=== PATIENT | female | born 1945 | race African-American/Black ===

== ENCOUNTER → 2016-07-06 | Outpatient (CLI) | payer MEDICARE, OTHER ==
[~2016-07-06] MED LIST: ASPI81TA3 PO; ATEN50TA PO; CARAS PO; CARV6.2579 PO; CIPR500S2 PO; DICY10CA60 PO; DIGO125T PO; FURO40TA4 PO; LISI20TA11 PO; METR500T14 PO; NIAC500T81 PO; PANT40TA4 PO; POTA20TA96 PO; SPIR25TA PO
[2016-07-06 12:43] LABS: ALBUMIN 3.7 g/dl (3.3-4.9)
[2016-07-06 12:44] LABS: POTASSIUM 3.9 mmol/L (3.5-5.1)
[2016-07-06 12:46] LABS: ALBUMIN/GLOBULIN RATIO 1.02; BILIRUBIN,INDIRECT 0.1 mg/dl (0-1.1); BILIRUBIN,TOTAL 0.1 mg/dl (0.2-1.3); CREATININE 0.89 mg/dl (0.44-1.00); TOTAL PROTEIN 7.3 g/dl (6.1-8.1)
[2016-07-06 12:47] LABS: MAGNESIUM 2.3 mg/dl (1.7-2.5)
[2016-07-06 12:48] LABS: CHOL/HDL RATIO 4.2 RATIO
[2016-07-06 13:08] LABS: BASOPHILS % 0.4 % (0.0-2.0); EOSINOPHILS # 0.4 10^3/ul (0.0-0.5); EOSINOPHILS % 4.8 % (0.0-7.0); HEMATOCRIT 38.6 % (37.0-47.0); HEMOGLOBIN 12.6 g/dl (12.0-16.0); LYMPHOCYTES # 2.5 10^3/ul (0.8-2.9); LYMPHOCYTES % 30.8 % (15.0-51.0); MEAN CORPUSCULAR HEMOGLOBIN 25.6 pg (29.0-33.0); MEAN CORPUSCULAR HGB CONC 32.5 g/dl (32.0-37.0); MEAN CORPUSCULAR VOLUME 78.6 fl (82.0-101.0); MEAN PLATELET VOLUME 10.3 fl (7.4-10.4); MONOCYTE # 0.7 10^3/ul (0.3-0.9); MONOCYTES % 8.3 % (0.0-11.0); NEUTROPHIL # 4.6 10^3/ul (1.6-7.5); NEUTROPHILS % 55.7 % (39.0-77.0); PLATELET COUNT 166 10^3/UL (140-440); RED BLOOD COUNT 4.91 10^6/ul (4.20-5.40); RED CELL DISTRIBUTION WIDTH 15.6 % (11.5-14.5); UNCORRECTED WBC 8.2 10^3/ul (4.8-10.8); WHITE BLOOD COUNT 8.2 10^3/ul (4.8-10.8)
[2016-07-06 13:11] LABS: CONDITION 1; LH ANALYZER COMMENTS 1
[2016-07-06 13:17] LABS: THYROID STIMULATING HORMONE 1.5 MIU/L (0.465-4.680)
== END | disposition home or self-care (01) ==
LOC: LAB 10:33
PROVIDERS: ATTEND Internal Medicine
DX: I24.0 Acute coronary thrombosis not resulting in myocardial infarction (principal); I10 Essential (primary) hypertension; E78.2 Mixed hyperlipidemia; J44.1 Chronic obstructive pulmonary disease with (acute) exacerbation
CPT/HCPCS: 80053; 80061; 82652; 83735; 84443; 85025

== ENCOUNTER 2017-03-03 16:18 | Inpatient (IN) | payer MEDICARE, OTHER ==
[~2017-03-03] VITALS: Ht 162.6 cm; Wt 81.1 kg
[~2017-03-03 16:18] MED LIST changes: +ASPI-664 PO; -ASPI81TA3 PO; -ATEN50TA PO; +BUDE6HFA INHALATION; -CARAS PO; -CIPR500S2 PO; -DICY10CA60 PO; -LISI20TA11 PO; -METR500T14 PO; -PANT40TA4 PO
[2017-03-03] MEDS ORDERED: ONDANSETRON 4 MG INJ IV STA (16:59)
[2017-03-03] MEDS ORDERED: HYDROmorphONE 1 MG/ML SYG IV STA ×2 (16:59→18:58)
[2017-03-03] MEDS ORDERED: SOD CHLORIDE 0.9% 250 ML IV STA (16:59)
--- NOTE | 2017-03-03 17:43 | RADRPT ---
PROCEDURE: CT abdomen and pelvis without IV contrast. CLINICAL INDICATION: Abdominal pain TECHNIQUE: CT scan of the abdomen and pelvis without contrast was performed on the [id number] volumetric [address] scanner. The patient was scanned without intravenous contrast. Coronal and sagittal refo rmatted images were obtained from the axial source images. The CTDI vol is 23.17 mGy and the DLP is 1267.09 mGy-cm. One or more of the following dose reduction techniques were used: Automated exposure control. Adjustment of the mA and/or kV according to patient size. Use of iterative reconstruction technique. COMPARISON: 12/10/2015 FINDINGS: CT abdomen: The lung bases are clear. The heart size is borderline enlarged and is without pericardial thickeni ng or effusion. The liver is normal in size and density and is without focal mass or intrahepatic biliary dilatation . Again seen are calcifications in the left hepatic lobe which are unchanged. The spleen is normal i n size and homogeneous in density. The stomach is grossly unremarkable. The pancreas as visualized is normal. The gallbladder and biliary tree are unremarkable and there is no evidence for common b ile duct dilatation. The adrenal glands are symmetric and normal. The kidneys are symmetrically un remarkable as well. No renal calculus or obstructive uropathy or mass lesion is seen. The aorta is of normal in caliber. Aortic calcifications are seen. There is no retroperitoneal lymph adenopathy. The bryan hepatis region is clear. The large bowel is diffusely fluid-filled. The smal l and large bowel and mesentery, as visualized, are otherwise unremarkable. No inflammatory changes in the periappendiceal region is seen. CT pelvis: The pelvic organs are normal. The pelvic sidewalls and inguinal regions are clear. No pelvic mass, lymphadenopathy, or free fluid is seen. No acute inflammation is seen. The urinary bladder is wit hin normal limits. Degenerative spondylosis of the lumbar spine is seen. No osteolytic or osteoblastic lesion is detec bill. IMPRESSION: 1. Diffusely fluid-filled large bowel which may represent a colonic ileus. The possibility of colit is should also be considered. RPTAT: HPNM Physician Yobani Date Time Electronically viewed and signed by Isac De La Torre Physician on 03/03/2017 17:42 /
[2017-03-03 17:49] LABS: ADD UMIC NO; UR ASCORBIC ACID NEGATIVE (NEGATIVE); UR BILIRUBIN (Dip) NEGATIVE (NEGATIVE); UR BLOOD (Dip) NEGATIVE (NEGATIVE); UR CLARITY CLEAR (CLEAR); UR COLOR STRAW (YELLOW); UR GLUCOSE (Dip) NEGATIVE (NEGATIVE); UR KETONES (Dip) NEGATIVE (NEGATIVE); UR LEUKOCYTE ESTERASE (Dip) NEGATIVE Leu/ul (NEGATIVE); UR NITRITE (Dip) NEGATIVE (NEGATIVE); UR SPECIFIC GRAVITY (Dip) 1.005 (1.003-1.030); UR TOTAL PROTEIN (Dip) NEGATIVE (NEGATIVE); UR UROBILINOGEN (Dip) NEGATIVE (NEGATIVE)
[2017-03-03 17:52] LABS: ABNORMAL IP MESSAGE 1; BASOPHILS % 0.4 % (0.0-2.0); EOSINOPHILS # 0.4 10^3/ul (0.0-0.5); EOSINOPHILS % 4.2 % (0.0-7.0); HEMATOCRIT 43.1 % (37.0-47.0); HEMOGLOBIN 13.4 g/dl (12.0-16.0); LYMPHOCYTES # 2.9 10^3/ul (0.8-2.9); LYMPHOCYTES % 29.5 % (15.0-51.0); MEAN CORPUSCULAR HEMOGLOBIN 25.7 pg (29.0-33.0); MEAN CORPUSCULAR HGB CONC 31.1 g/dl (32.0-37.0); MEAN CORPUSCULAR VOLUME 82.6 fl (82.0-101.0); MEAN PLATELET VOLUME 13.1 fl (7.4-10.4); MONOCYTE # 0.9 10^3/ul (0.3-0.9); MONOCYTES % 8.7 % (0.0-11.0); NEUTROPHIL # 5.6 10^3/ul (1.6-7.5); PLATELET COUNT 172 10^3/UL (140-415); RED BLOOD COUNT 5.22 10^6/ul (4.20-5.40); RED CELL DISTRIBUTION WIDTH 14.7 % (11.5-14.5); WHITE BLOOD COUNT 9.8 10^3/ul (4.8-10.8)
[2017-03-03 18:01] LABS: POSITIVE DIFF @See below
--- NOTE | 2017-03-03 18:05 | ERA ---
ER Documentation Chief Complaint Date/Time DATE: 03/03/17 TIME: 17:59 Chief Complaint sent by PCP for 03/08 abd pain HPI 71-year-old female presenting with diffuse abdominal pain. She states that her symptoms started about 3 weeks ago. She has had mold in her apartment and is not being taken care of per the daughter. She states that there was moldy water dripping into her mouth. Her pain has recently gotten worse. She has had intermittent nausea, vomiting, and diarrhea. She is unable to quantify how much. She states she intermittently also has blood in her stool. She denies any fever but endorses chills. She states the pain is aching, in the upper abdomen, radiating all over her abdomen and into her chest. The pain has not changed in quality but has become more intense. She rates a 10 out of 10. No associated dysuria. She was sent by her primary care doctor Dr. Minnie Anderson for evaluation and admission. ROS All systems reviewed and are negative except as per history of present illness. Medications Home Meds Reported Medications Lisinopril* (Lisinopril*) Unknown Strength Tablet, PO DAILY, #30 TAB 03/03/17 Aspirin* (Aspirin* EC) 81 Mg Tablet.dr, 81 MG PO DAILY, TAB 01/21/17 Budesonide-Formoterol Fumarate* (Symbicort*) 160-4.5 Hfa.aer.ad, 2 PUFF INHALATION BID, #1 EACH 01/21/17 Niacin* (Niacin*) 500 Mg Tablet, 500 MG PO BID, TAB 12/10/15 Potassium Chloride* (Potassium Chloride*) 20 Meq Tablet.er, 20 MEQ PO DAILY, TAB.SA 04/13/14 Spironolactone* (Aldactone*) 25 Mg Tablet, 25 MG PO DAILY, TAB 04/13/14 Furosemide* (Furosemide*) 40 Mg Tablet, 40 MG PO DAILY, TAB 12/25/13 Discontinued Reported Medications Carvedilol* (Carvedilol*) 6.25 Mg Tablet, 6.25 MG PO BID, #60 TAB 12/10/15 Digoxin* (Digoxin*) 0.125 Mg Tab, 0.125 MG PO DAILY, #30 TAB 12/10/15 Allergies Allergies: Coded Allergies: morphine (Verified Allergy, Unknown, HALLUCINATIONS, 03/03/17) caffeine (Verified Adverse Reaction, Unknown, 03/03/17) PMhx/Soc History of Surgery: No Anesthesia Reaction: No Hx Neurological Disorder: No Hx Respiratory Disorders: Yes (BRONCHITIS,ASTHMA) Hx Cardiac Disorders: Yes (CHF,HTN) Hx Psychiatric Problems: No Hx Miscellaneous Medical Probl: Yes (QUESTIONABLE STROKE 2015) Hx Alcohol Use: No Hx Substance Use: No Hx Tobacco Use: No Smoking Status: Never smoker FmHx Family History: No diabetes Physical Exam Vitals Vital Signs Date Time Temp Pulse Resp B/P Pulse Ox O2 Delivery O2 Flow Rate FiO2 03/03/17 16:20 98.3 79 20 174/86 98 Physical Exam Const: Well-developed, nontoxic, mild distress secondary to pain Head: Atraumatic Eyes: Normal Conjunctiva but no scleral icterus, PERRLA ENT: Normal External Ears, Nose and Mouth. Neck: Full range of motion..~ No meningismus. Resp: Clear to auscultation bilaterally Cardio: Regular rate and rhythm, no murmurs Abd: Soft, diffuse mild tenderness to palpation, no rebound or guarding, mildly distended. Normal bowel sounds Skin: No petechiae or rashes Back: No midline or flank tenderness Ext: No cyanosis, or edema Neur: Awake and alert Psych: Normal Mood and Affect Result Diagram: 03/03/17 1725 03/03/17 1725 Results 24 hrs Laboratory Tests Test 03/03/17 17:25 White Blood Count 9.810^3/ul Red Blood Count 5.2210^6/ul Hemoglobin 13.4g/dl Hematocrit 43.1% Mean Corpuscular Volume 82.6fl Mean Corpuscular Hemoglobin 25.7pg Mean Corpuscular Hemoglobin Concent 31.1g/dl Red Cell Distribution Width 14.7% Platelet Count 66464^3/UL Mean Platelet Volume 13.1fl Neutrophils % 57.0% Lymphocytes % 29.5% Monocytes % 8.7% Eosinophils % 4.2% Basophils % 0.4% Nucleated Red Blood Cells % 0.0/100WBC Neutrophils # 5.610^3/ul Lymphocytes # 2.910^3/ul Monocytes # 0.910^3/ul Eosinophils # 0.410^3/ul Basophils # 0.010^3/ul Nucleated Red Blood Cells # 0.010^3/ul Urine Color STRAW Urine Clarity CLEAR Urine pH 5.0 Urine Specific [place] 1.005 Urine Ketones NEGATIVEmg/dL Urine Nitrite NEGATIVEmg/dL Urine Bilirubin NEGATIVEmg/dL Urine Urobilinogen NEGATIVEmg/dL Urine Leukocyte Esterase NEGATIVELeu/ul Urine Hemoglobin NEGATIVEmg/dL Urine Glucose NEGATIVEmg/dL Urine Total Protein NEGATIVEmg/dl Sodium Level 143mmol/L Potassium Level 3.9mmol/L Chloride Level 111mmol/L Carbon Dioxide Level 22mmol/L Anion Gap 14 Blood Urea Nitrogen 14mg/dl Creatinine 0.92mg/dl Glucose Level 113mg/dl Calcium Level 9.2mg/dl Total Bilirubin 0.3mg/dl Direct Bilirubin 0.00mg/dl Indirect Bilirubin 0.3mg/dl Aspartate Amino Transf (AST/SGOT) 25IU/L Alanine Aminotransferase (ALT/SGPT) 28IU/L Alkaline Phosphatase 129IU/L Troponin I < 0.012ng/ml Total Protein 8.6g/dl Albumin 4.3g/dl Globulin 4.30g/dl Albumin/Globulin Ratio 1.00 Lipase 65U/L Current Medications Medications (Trade) Dose Ordered Sig/Alok Route PRN Reason Start Time Stop Time Status Last Admin Dose Admin Sodium Chloride (NS) 250 ml @ 250 mls/hr Q1H STAT IV 03/03/17 16:59 03/03/17 17:58 DC 03/03/17 17:49 Ondansetron HCl (Zofran Inj) 4 mg ONCE STAT IV 03/03/17 16:59 03/03/17 17:02 DC 03/03/17 17:49 Hydromorphone HCl (Dilaudid) 0.5 mg ONCE STAT IV 03/03/17 16:59 03/03/17 17:02 DC Procedures/MDM EMERGENT LABS AND DIAGNOSTIC STUDIES: Lab Results above were reviewed and interpreted by me. CBC: no anemia or evidence of infection CMP: No evidence of electrolyte abnormality, renal failure, hypoglycemia, liver failure, or biliary obstruction Troponin within normal limits UA: no evidence of infection 12-lead EKG was interpreted by Ken Combs MD: Normal Sinus Rhythm with ventricular rate of 71 beats per minute Normal axis Normal intervals No acute ST or T wave changes suggestive of acute ischemia or STEMI. Radiology Results as interpreted by Radiology below were reviewed by Suzy Combs MD: CT abdomen and pelvis shows evidence of ileus and colitis Initial Nursing notes reviewed. Previous Medical Records requested via the Electronic Health Record. EMERGENCY DEPARTMENT COURSE / MEDICAL DECISION MAKING: Patient is presenting with diffuse abdominal pain with nausea, vomiting, diarrhea for several weeks. She is afebrile with stable vitals. Her blood pressure is elevated, but I do not suspect hypertensive emergency. IV fluids were started. Morphine and Zofran were given for her pain and nausea. No evidence of sepsis at this time. I have a low suspicion for aortic dissection, perforated viscus, bowel obstruction, cholecystitis, appendicitis, pancreatitis , or acute coronary syndrome. Her labs showed no significant abnormalities. Her CT did confirm presence of ileus and colitis. Given her p.o. intolerance and continued pain, the patient will be admitted for IV fluids, pain control and treatment of her colitis. Accepting Care Team: Current data and ongoing care discussed. Time: Time of admission Primary Provider: David Consulting: none Outstanding Data: none Departure Diagnosis: Primary Impression: Colitis Additional Impression: Ileus Condition: ARAM Murdock MD Mar 03, 2017 18:05
[2017-03-03 18:08] LABS: ALANINE AMINOTRANSFERASE 28 IU/L (13-69); ALBUMIN 4.3 g/dl (3.3-4.9); ALKALINE PHOSPHATASE 129 IU/L (42-121); ANION GAP 14 (8-16); ASPARTATE AMINO TRANSFERASE 25 IU/L (15-46); BILIRUBIN,INDIRECT 0.3 mg/dl (0-1.1); BILIRUBIN,TOTAL 0.3 mg/dl (0.2-1.3); BLOOD UREA NITROGEN 14 mg/dl (7-20); CALCIUM 9.2 mg/dl (8.4-10.2); CARBON DIOXIDE 22 mmol/L (21-31); CHLORIDE 111 mmol/L (97-110); CREATININE 0.92 mg/dl (0.44-1.00); GLUCOSE 113 mg/dl (70-220); POTASSIUM 3.9 mmol/L (3.5-5.1); SODIUM 143 mmol/L (135-144); TOTAL PROTEIN 8.6 g/dl (6.1-8.1)
[2017-03-03 18:21] LABS: TROPONIN-I < 0.012 ng/ml (0.00-0.12)
[2017-03-03] MEDS ORDERED: ACETAMINOPHEN 325 MG TAB PO PRN (18:30)
[2017-03-03] MEDS ORDERED: ONDANSETRON 4 MG INJ IV PRN (18:30)
[2017-03-03 18:58] VITALS: TEMP 98.3
[2017-03-03] MEDS ORDERED: LISI20TA11 PO (19:02)
[2017-03-03] MEDS ORDERED: HYDROmorphONE 1 MG/ML SYG IV PRN (19:30)
[2017-03-03] MEDS ORDERED: ACETAMINOPHEN 650 MG SUPP PR PRN (19:30)
[2017-03-03] MEDS ORDERED: NACL 0.9% 3 ML SYG IV SCH (19:30)
[2017-03-03 20:15] VITALS: BP 183/83; PULSE 69; RESP 19
[2017-03-03] MEDS: ENALAPRILAT 1.25 MG INJ IV PRN (20:45)
[2017-03-03 21:30] VITALS: BP 180/86; PULSE 64
[2017-03-03] MEDS ORDERED: FAMOTIDINE 20 MG INJ IV SCH (22:00)
[2017-03-03] MEDS: metroNIDAZOLE 500 MG/NS (PMX) 100 ML IVPB SCH (22:00)
[2017-03-03] MEDS ORDERED: hydrALAzine 20 MG INJ IV PRN (22:00)
--- NOTE | 2017-03-03 22:58 | HP ---
Date/Time of Note Date/Time of Note DATE: 03/03/17 TIME: 22:52 Assessment/Plan VTE Prophylaxis VTE Prophylaxis Intervention: SCD's Lines/Catheters IV C[facility]ter Type [facility]from [facility] Peripheral IV Assessment/Plan Chief Complaint/Hosp Course This is a 71-year-old female who is being admitted to the [facility] floor for: #1 diarrhea: Infectious versus viral versus other etiology. CAT scan: Diffusely fluid-filled large bowel which may represent a colonic ileus. The possibility of colitis should also be considered. Patient has been exposed to mold as well as other chemicals secondary to her poor living conditions at her apartment. She does not have any fevers at this time and has a normal white blood cell count. At the current time will provide her with normal saline IV fluid hydration. Will put her on the brat diet. Will start her on Cipro and Flagyl at the current time. Will check stool studies, fecal occult stool, ova and parasites, culture of her stool, will check for organisms. Will also check C. difficile. Will hold off on any anti-motility agents at this time. Will also consider a GI consultation to help with further evaluation and possibly infectious disease.. Will monitor hemoglobin every 6 hours as she does state she has some blood. #2 History of anemia: At the current time she appears to be normocytic. Hemoglobin is 13. Which is baseline compared to her hemoglobin in 2016. Will continue monitor H&H secondary to #1. #3 CHF: At the current time patient does not appear to be in any cardiac decompensation. Will continue aspirin at this time. Patient is not currently on a beta-keith. Will hold her diuretics at the current time secondary to her diarrhea and her ileus. We will need to verify her medications to see if there is anything missing as well. #4 hypertension: Patient currently is on Lasix and spironolactone, will hold these right now secondary to the diuretic effect and that she is having diarrhea and electrolyte losses will hold this for now. Will put as needed hydralazine on board for blood pressure control #5 history of CVA: Patient at the current time does not have any residual neurological deficit. Continue aspirin. #6 hyperlipidemia: Not currently on statin. #7 previous history of seizures: Patient currently not on any AEDs. Continue to monitor. #8 DVT and GI prophylaxis: SCDs, acid keith Further treatment strategy will be implemented as per the clinical course Problems: HPI/ROS Admit Date/Time Admit Date/Time Mar 03, 2017 at 18:23 Hx of Present Illness Chief complaint: Diarrhea for approximately 3 weeks This is a 71-year-old female presenting with diffuse abdominal pain. She states that her symptoms started about 3 weeks ago. She has had mold in her apartment and is not being taken care of per the daughter. She states that there was moldy water dripping into her mouth. Her pain has recently gotten worse. She has had intermittent nausea, vomiting, and diarrhea. She is unable to quantify how much. She states she intermittently also has blood in her stool. She denies any fever but endorses chills. She states the pain is aching , in the upper abdomen, radiating all over her abdomen and into her chest. The pain has not changed in quality but has become more intense. She rates a 10 out of 10. No associated dysuria. She was sent by her primary care doctor Dr. Minnie Anderson for evaluation and admission. Of note the patient describes her stool as being liquidy, at times she has noticed some fat, as well as some occasional episodes of blood. She also reports at times feeling hot but has not checked her temperature. Upon my examination of the patient I was also able to talk to the patient's daughter over the phone who also stated that she has had very similar symptoms to her mother as they both lived in the same apartment. They are both unsure what exactly is going on. Her current apartment situation is being dealt with and they have gotten a hand binder cutter and the state involved as well. Allergies: Caffeine, morphine Medications: See MELL VERONICA Const: As per HPI Eyes : No pain discharge or redness or change in visual acuity ENT: No pain, sore throat, congestion, congestion, dysphagia or discharge Respiratory: No shortness of breath, cough, sputum, wheezing, or pleuritic pain Cardiovascular: No chest pain, palpitation, PND, or edema GI : As per HPI Genitourinary: No dysuria, hematuria, flank pain , discharge or CVA tenderness Musculoskeletal: No joint pain, back pain, neck pain, restricted range of motion in neck or joints Skin: No rash, bruising or hives Neuro: No headache, dizziness, syncope, seizure, focal weakness Endocrine: No polyuria, polydipsia, temperature intolerance Psych: No hallucination, depression, anxiety or suicidal ideation PMH/Family/Social Past Medical History CVA, Arthritis, Previous TIA. History of seizure in the past. Chronic anemia. Morbid obesity. History of uterine fibroids, congestive heart failure, diabetes, high cholesterol, hypertension Past Surgical History Lipoma resection behind right ear Family History Significant Family History: diabetes, hypertension Social History Alcohol Use: none Smoking Status: Never smoker Drug Use: none Exam/Review of Systems Vital Signs Vitals Vital Signs Date Time Temp Pulse Resp B/P Pulse Ox O2 Delivery O2 Flow Rate FiO2 03/03/17 18:58 98.3 70 18 161/74 03/03/17 16:20 98 Exam Exam General: Patient is a obese female lying in bed no acute distress HEENT: Atraumatic, normocephalic. The pupils are equal, round and reactive. Extraocular motor are intact Neck: Supple with full range of motion. No rigidity or meningismus Chest: Nontender Lungs: Clear to auscultation bilaterally no crackles rales or wheezing Heart: Normal S1-S2, Regular rhythm and rate. No murmur, S3, or S4 Abdomen: Soft, tenderness to palpation at the epigastric area, nondistended, hypoactive bowel sounds Extremities: Normal to inspection, no edema no cyanosis Neurologic: Normal mental status, speech normal, cranial nerves II through XII are intact, motor and sensory are intact, no focal weakness Additional Comments PROCEDURE: CT abdomen and pelvis without IV contrast. CLINICAL INDICATION: Abdominal pain TECHNIQUE: CT scan of the abdomen and pelvis without contrast was performed on the Fracture volumetric [address] scanner. The patient was scanned without intravenous contrast. Coronal and sagittal reformatted images were obtained from the axial source images. The CTDI vol is 23.17 mGy and the DLP is 1267.09 mGy-cm. One or more of the following dose reduction techniques were used: Automated exposure control. Adjustment of the mA and/or kV according to patient size. Use of iterative reconstruction technique. COMPARISON: 12/10/2015 FINDINGS: CT abdomen: The lung bases are clear. The heart size is borderline enlarged and is without pericardial thickening or effusion. The liver is normal in size and density and is without focal mass or intrahepatic biliary dilatation. Again seen are calcifications in the left hepatic lobe which are unchanged. The spleen is normal in size and homogeneous in density. The stomach is grossly unremarkable. The pancreas as visualized is normal. The gallbladder and biliary tree are unremarkable and there is no evidence for common bile duct dilatation. The adrenal glands are symmetric and normal. The kidneys are symmetrically unremarkable as well. No renal calculus or obstructive uropathy or mass lesion is seen. The aorta is of normal in caliber. Aortic calcifications are seen. There is no retroperitoneal lymphadenopathy. The bryan hepatis region is clear. The large bowel is diffusely fluid-filled. The small and large bowel and mesentery, as visualized, are otherwise unremarkable. No inflammatory changes in the periappendiceal region is seen. CT pelvis: The pelvic organs are normal. The pelvic sidewalls and inguinal regions are clear. No pelvic mass, lymphadenopathy, or free fluid is seen. No acute inflammation is seen. The urinary bladder is within normal limits. Degenerative spondylosis of the lumbar spine is seen. No osteolytic or osteoblastic lesion is detected. IMPRESSION: 1. Diffusely fluid-filled large bowel which may represent a colonic ileus. The possibility of colitis should also be considered. RPTAT: HPNM Physician Yobani Date Time Electronically viewed and signed by Physician Yobani on 03/03/2017 17 :42 / CC: ARAM CASANOVA MD Labs Result Diagram: 03/03/17 1725 03/03/17 1725 Medications Medications Current Medications Sodium Chloride (NS) 1,000 ml @ 100 mls/hr Q10H IV ; Start 03/03/17 at 22:00 Ondansetron HCl (Zofran Inj) 4 mg Q6H PRN IV NAUSEA AND/OR VOMITING; Start 03/03/17 at 19:30 Acetaminophen (Tylenol Supp) 650 mg Q6H PRN GA PAIN LEVEL 1-3 OR FEVER; Start 03/03/17 at 19:30 Hydromorphone HCl (Dilaudid) 0.5 mg Q4H PRN IV SEVERE PAIN LEVEL 7-10; Start 03/03/17 at 19:30 Famotidine 20 mg 20 mg QHS IV Last administered on 03/03/17 22:00; Admin Dose 20 MG; Start 03/03/17 at 22:00 Metronidazole (Flagyl 500 Mg (Pmx)) 100 ml @ 100 mls/hr Q8 IVPB Last administered on 03/03/17 22:00; Admin Dose 100 MLS/HR; Start 03/03/17 at 22:00 Enalaprilat (Vasotec Iv) 0.625 mg Q6H PRN IV SBP >160 Last administered on 03/03 20:45; Admin Dose 0.625 MG; Start 03/03/17 at 19:30 Hydralazine HCl 20 mg 20 mg Q4 PRN IV ELEVATED BLOOD PRESSURE; Start 03/03/17 at 22:00 Ciprofloxacin/ Dextrose (Cipro Ivpb) 200 ml @ 200 mls/hr Q24H IVPB ; Start 03/03/17 at 23:00 Lactobacillus Acidophilus/ Rhamnosus (Culturelle) 1 cap BID PO ; Start 03/03/17 at 23:00 DUNCAN GONZALEZ Mar 03, 2017 22:58
[2017-03-03] MEDS: LACTOBACILLUS RHAMNOSUS CAP PO SCH (23:00)
[2017-03-03 23:35] VITALS: BP 172/79; PULSE 84; RESP 18
[2017-03-04] MEDS ORDERED: CLINDAMYCIN 600 MG/D5W (PMX) 50 ML IVPB SCH
[2017-03-04] MEDS: SOD CHLORIDE 0.9% 1,000 ML IV SCH ×2 (00:24→08:00)
[2017-03-04] MEDS: CIPROFLOXACIN 400MG/D5W 200 ML IVPB SCH ×2 (00:24→22:59)
[2017-03-04 00:38] VITALS: Ht 162.6 cm; Wt 81.1 kg
[2017-03-04] MEDS: metroNIDAZOLE 500 MG/NS (PMX) 100 ML IVPB SCH ×3 (04:48→21:37)
[2017-03-04 05:50] VITALS: BP 145/90; PULSE 74; RESP 18
[2017-03-04 06:01] LABS: BASOPHIL # 0.1 10^3/ul (0.0-0.1); BASOPHILS % 0.7 % (0.0-2.0); EOSINOPHILS # 0.5 10^3/ul (0.0-0.5); EOSINOPHILS % 5.5 % (0.0-7.0); HEMATOCRIT 39.3 % (37.0-47.0); HEMOGLOBIN 12.1 g/dl (12.0-16.0); LYMPHOCYTES # 2.5 10^3/ul (0.8-2.9); LYMPHOCYTES % 28.3 % (15.0-51.0); MEAN CORPUSCULAR HEMOGLOBIN 25.4 pg (29.0-33.0); MEAN CORPUSCULAR HGB CONC 30.8 g/dl (32.0-37.0); MEAN CORPUSCULAR VOLUME 82.4 fl (82.0-101.0); MEAN PLATELET VOLUME 12.1 fl (7.4-10.4); MONOCYTE # 0.8 10^3/ul (0.3-0.9); NEUTROPHIL # 4.9 10^3/ul (1.6-7.5); NEUTROPHILS % 56.3 % (39.0-77.0); PLATELET COUNT 166 10^3/UL (140-415); RED BLOOD COUNT 4.77 10^6/ul (4.20-5.40); RED CELL DISTRIBUTION WIDTH 14.7 % (11.5-14.5); WHITE BLOOD COUNT 8.7 10^3/ul (4.8-10.8)
[2017-03-04 06:49] LABS: ALBUMIN 3.5 g/dl (3.3-4.9); ALBUMIN/GLOBULIN RATIO 1.06; BILIRUBIN,INDIRECT 0.3 mg/dl (0-1.1); BILIRUBIN,TOTAL 0.3 mg/dl (0.2-1.3); CALCIUM 8.5 mg/dl (8.4-10.2); CREATININE 0.94 mg/dl (0.44-1.00); MAGNESIUM 2.1 mg/dl (1.7-2.5); POTASSIUM 3.3 mmol/L (3.5-5.1); TOTAL PROTEIN 6.8 g/dl (6.1-8.1)
[2017-03-04 08:00] VITALS: BP 175/84; PULSE 72; RESP 18
[2017-03-04] MEDS: LACTOBACILLUS RHAMNOSUS CAP PO SCH ×2 (09:18→21:36)
[2017-03-04] MEDS: ASPIRIN (EC) 81 MG TAB PO SCH (09:18)
[2017-03-04] MEDS: SALMETEROL/FLUTICASONE 250/50 INHA INH SCH ×2 (09:18→21:36)
[2017-03-04] MEDS: ENALAPRILAT 1.25 MG INJ IV PRN (09:33)
[2017-03-04 11:30] VITALS: BP 197/86; PULSE 86; RESP 18
[2017-03-04] MEDS: FUROSEMIDE 40 MG TAB PO SCH (11:55)
[2017-03-04] MEDS: POTASSIUM CHLORIDE (SR) 20 MEQ TAB PO SCH (11:55)
[2017-03-04] MEDS: SPIRONOLACTONE 25 MG TAB PO SCH (12:21)
[2017-03-04] MEDS ORDERED: POTASSIUM CHLORIDE 20 MEQ in SOD CHLORIDE 0.9% 100 ML IVPB ONE (12:30)
[2017-03-04] MEDS: D5W-0.45 NACL + KCL 10 MEQ 1,000 ML IV SCH (12:59)
[2017-03-04 13:30] VITALS: BP 154/75; PULSE 86; RESP 18
[2017-03-04] MEDS: NIACIN 500 MG TAB PO SCH ×2 (13:48→21:36)
--- NOTE | 2017-03-04 15:30 | PN ---
Date/Time of Note Date/Time of Note DATE: 03/04/17 TIME: 15:25 Assessment/Plan VTE Prophylaxis VTE Prophylaxis Intervention: SCD's Lines/Catheters IV Catheter Type (from Nrsg): Peripheral IV Assessment/Plan Assessment/Plan 1. Acute colitis with possible colonic ileus 2. Acute intractable abdominal due to # 1 3. Hypokalemia due to diarrhea and Decreased PO intake 4. h/o CHF, compensated 5. accelerated HTN 6. h/o Asthma 7. ? Stroke as per patient Plan: d/c diet, keep pt NPO Except meds since she is not passing gas yesterday pt signed out AMA and she came back immediately, today she agreed to stay in hospital and get care BP high, will resumer her home meds of lasix and spironolactone, IV hydralazine with PO hydralazine prn d/c enalapril KCL 20mEQ IV X1 extra dose, d/c NS IVF , start D51/2NS with 10mEQ KCL at 70cc/hr SCD for DVT prophylaxis GI consulted on the case Subjective 24 Hr Interval Summary Free Text/Dictation pt not passing gas, no BM yet, still c/o signficant pain in abdomen, Exam/Review of Systems Vital Signs Vitals Vital Signs Date Time Temp Pulse Resp B/P Pulse Ox O2 Delivery O2 Flow Rate FiO2 03/04/17 13:30 86 18 154/75 95 Room Air 03/04/17 08:00 97.0 Intake and Output 03/03/17 03/03/17 03/04/17 15:00 23:00 07:00 Intake Total 100 ml 840 ml Output Total 400 ml Balance 100 ml 440 ml Exam Constitutional: alert, distress (mild distress due to pain ), other Head: normocephalic ENMT: nl external ears & nose Neck: non-tender, supple Respiratory: clear to auscultation, diminished breath sounds, normal air movement Cardiovascular: nl pulses, regular rate and rhythm Gastrointestinal: soft, tender (diffusely over th abdomen, more on left side ) Musculoskeletal: muscle weakness, nl extremities to inspection, nl gait and stance Neurological: BREAST SURGEON II-XII intact, nl mental status, nl speech, nl strength Skin: nl turgor Results Result Diagram: 03/04/1743903/04/17439 Results 24 hrs Laboratory Tests Test 03/03/17 17:25 03/04/17 04:40 03/04/17 08:50 White Blood Count 9.8 8.7 Red Blood Count 5.22 4.77 Hemoglobin 13.4 12.1 Hematocrit 43.1 39.3 Mean Corpuscular Volume 82.6 82.4 Mean Corpuscular Hemoglobin 25.7 L 25.4 L Mean Corpuscular Hemoglobin Concent 31.1 L 30.8 L Red Cell Distribution Width 14.7 H 14.7 H Platelet Count 172 166 Mean Platelet Volume 13.1 H 12.1 H Neutrophils % 57.0 56.3 Lymphocytes % 29.5 28.3 Monocytes % 8.7 9.0 Eosinophils % 4.2 5.5 Basophils % 0.4 0.7 Nucleated Red Blood Cells % 0.0 0.0 Neutrophils # 5.6 4.9 Lymphocytes # 2.9 2.5 Monocytes # 0.9 0.8 Eosinophils # 0.4 0.5 Basophils # 0.0 0.1 Nucleated Red Blood Cells # 0.0 0.0 Urine Color STRAW Urine Clarity CLEAR Urine pH 5.0 Urine Specific Cook 1.005 Urine Ketones NEGATIVE Urine Nitrite NEGATIVE Urine Bilirubin NEGATIVE Urine Urobilinogen NEGATIVE Urine Leukocyte Esterase NEGATIVE Urine Hemoglobin NEGATIVE Urine Glucose NEGATIVE Urine Total Protein NEGATIVE Sodium Level 143 144 Potassium Level 3.9 3.3 L Chloride Level 111 H 113 H Carbon Dioxide Level 22 23 Anion Gap 14 11 Blood Urea Nitrogen 14 11 Creatinine 0.92 0.94 Glucose Level 113 120 Calcium Level 9.2 8.5 Total Bilirubin 0.3 0.3 Direct Bilirubin 0.00 0.00 Indirect Bilirubin 0.3 0.3 Aspartate Amino Transf (AST/SGOT) 25 21 Alanine Aminotransferase (ALT/SGPT) 28 29 Alkaline Phosphatase 129 H 106 Troponin I < 0.012 Total Protein 8.6 H 6.8 # Albumin 4.3 3.5 Globulin 4.30 H 3.30 H Albumin/Globulin Ratio 1.00 1.06 Lipase 65 Magnesium Level 2.1 Stool Occult Blood NEGATIVE Medications Medications Current Medications Ondansetron HCl (Zofran Inj) 4 mg Q6H PRN IV NAUSEA AND/OR VOMITING; Start 03/03/17 at 19:30 Acetaminophen (Tylenol Supp) 650 mg Q6H PRN [place] PAIN LEVEL 1-3 OR FEVER; Start 03/03/17 at 19:30 Hydromorphone HCl 0.5 mg 0.5 mg Q4H PRN IV SEVERE PAIN LEVEL 7-10; Start at 19:30 Metronidazole 100 ml @ 100 mls/hr Q8 IVPB Last administered on 03/04/17 13:48 ; Admin Dose 100 MLS/HR; Start 03/03/17 at 22:00 Ciprofloxacin/ Dextrose (Cipro Ivpb) 200 ml @ 200 mls/hr Q24H IVPB Last administered on 03/04/17 00:24; Admin Dose 200 MLS/HR; Start 03/03/17 at 23:00 Lactobacillus Acidophilus/ Rhamnosus (Culturelle) 1 cap BID PO Last administered on 03/04/17 09:18; Admin Dose 1 CAP; Start 03/03/17 at 23:00 Aspirin (Halfprin) 81 mg DAILY PO Last administered on 03/04/17 09:18; Admin Dose 81 MG; Start 03/04/17 at 09:00 Salmeterol Xinafoate/ Fluticasone (Advair 250/50 Diskus) 1 inh BID INH Last administered on 03/04/17 09:18; Admin Dose 1 INH; Start 03/04/17 at 09:00 Furosemide (Lasix) 40 mg DAILY PO Last administered on 03/04/17 11:55; Admin Dose 40 MG; Start 03/04/17 at 11:00 Niacin (Niacin) 500 mg BID PO Last administered on 03/04/17 13:48; Admin Dose 500 MG; Start 03/04/17 at 13:00 Potassium Chloride (Klor-Con 20) 20 meq DAILY PO Last administered on 11:55; Admin Dose 20 MEQ; Start 03/04/17 at 11:00 Spironolactone 25 mg 25 mg DAILY@06 PO Last administered on 03/04/17 12:21; Admin Dose 25 MG; Start 03/04/17 at 11:00 Potassium Chloride/Dextrose/ Sod Cl (D5-1/2ns + KCl 10 Meq) 1,000 ml @ 70 mls/ hr [id number] IV Last administered on 03/04/17 12:59; Admin Dose 70 MLS/HR; Start 03/04/17 at 11:00; Stop 03/05/17 at 15:34 Hydralazine HCl (Apresoline) 50 mg Q6H PRN PO SBP>150 mmhg Last administered on 03/04/17t 12:21; Admin Dose 50 MG; Start 03/04/17 at 11:00 Hydralazine HCl (Apresoline) 10 mg Q4H PRN IV ELEVATED BLOOD PRESSURE; Start 03/04/17 at 11:00 Famotidine (Pepcid Iv) 20 mg HS IV ; Start 03/04/17 at 21:00 IVAN GARCIA MD Mar 04, 2017 15:30
[2017-03-04 17:00] VITALS: BP 140/65; PULSE 74; RESP 18
[2017-03-04] MEDS ORDERED: HYDROmorphONE 1 MG/ML SYG IV PRN (19:30)
[2017-03-04 20:00] VITALS: BP 171/84; RESP 18
[2017-03-04] MEDS: FAMOTIDINE 20 MG INJ IV SCH (21:36)
[2017-03-04] MEDS: DIPHENHYDRAMINE 25 MG CAP PO PRN (23:41)
[2017-03-05] MEDS: D5W-0.45 NACL + KCL 10 MEQ 1,000 ML IV SCH (01:18)
[2017-03-05 03:53] VITALS: BP 175/77; RESP 18
[2017-03-05] MEDS: SPIRONOLACTONE 25 MG TAB PO SCH (05:12)
[2017-03-05 05:13] VITALS: BP 150/73; PULSE 84
[2017-03-05] MEDS: metroNIDAZOLE 500 MG/NS (PMX) 100 ML IVPB SCH ×3 (05:13→21:39)
[2017-03-05 05:31] LABS: BASOPHILS % 0.1 % (0.0-2.0); EOSINOPHILS # 0.2 10^3/ul (0.0-0.5); EOSINOPHILS % 1.9 % (0.0-7.0); HEMATOCRIT 37.7 % (37.0-47.0); HEMOGLOBIN 11.5 g/dl (12.0-16.0); LYMPHOCYTES # 1.6 10^3/ul (0.8-2.9); LYMPHOCYTES % 17.2 % (15.0-51.0); MEAN CORPUSCULAR HEMOGLOBIN 25.2 pg (29.0-33.0); MEAN CORPUSCULAR HGB CONC 30.5 g/dl (32.0-37.0); MEAN CORPUSCULAR VOLUME 82.5 fl (82.0-101.0); MEAN PLATELET VOLUME 12.7 fl (7.4-10.4); MONOCYTE # 0.7 10^3/ul (0.3-0.9); MONOCYTES % 7.2 % (0.0-11.0); NEUTROPHIL # 6.9 10^3/ul (1.6-7.5); NEUTROPHILS % 73.4 % (39.0-77.0); PLATELET COUNT 162 10^3/UL (140-415); RED BLOOD COUNT 4.57 10^6/ul (4.20-5.40); RED CELL DISTRIBUTION WIDTH 14.7 % (11.5-14.5); WHITE BLOOD COUNT 9.4 10^3/ul (4.8-10.8)
[2017-03-05 05:56] LABS: ALBUMIN 3.3 g/dl (3.3-4.9); ALBUMIN/GLOBULIN RATIO 1.03; BILIRUBIN,INDIRECT 0.4 mg/dl (0-1.1); BILIRUBIN,TOTAL 0.4 mg/dl (0.2-1.3); CALCIUM 8.7 mg/dl (8.4-10.2); CREATININE 0.98 mg/dl (0.44-1.00); POTASSIUM 3.7 mmol/L (3.5-5.1); TOTAL PROTEIN 6.5 g/dl (6.1-8.1)
[2017-03-05 05:57] LABS: MAGNESIUM 1.9 mg/dl (1.7-2.5)
[2017-03-05 06:02] LABS: PARTIAL THROMBOPLASTIN TIME 33.6 Sec (25.0-35.0)
[2017-03-05 06:06] LABS: INR 1.06; PROTIME 13.8 Sec (12.2-14.2); PT RATIO 1.1
[2017-03-05 08:41] VITALS: BP 167/78; RESP 20
[2017-03-05] MEDS: LACTOBACILLUS RHAMNOSUS CAP PO SCH ×2 (09:45→21:39)
[2017-03-05] MEDS: FUROSEMIDE 40 MG TAB PO SCH (09:47)
[2017-03-05] MEDS: NIACIN 500 MG TAB PO SCH ×2 (09:47→21:39)
[2017-03-05] MEDS: POTASSIUM CHLORIDE (SR) 20 MEQ TAB PO SCH (09:47)
[2017-03-05] MEDS: ASPIRIN (EC) 81 MG TAB PO SCH (09:47)
[2017-03-05] MEDS: SALMETEROL/FLUTICASONE 250/50 INHA INH SCH ×2 (09:48→21:39)
[2017-03-05] MEDS: DIPHENHYDRAMINE 25 MG CAP PO PRN (11:30)
--- NOTE | 2017-03-05 13:39 | PN ---
Date/Time of Note Date/Time of Note DATE: 03/05/17 TIME: 13:28 Assessment/Plan VTE Prophylaxis VTE Prophylaxis Intervention: SCD's Lines/Catheters IV Catheter Type (from Nrsg): Saline Lock Urinary Cath still in place: No Assessment/Plan Assessment/Plan 1. Acute colitis with possible colonic ileus 2. Acute intractable abdominal due to # 1 3. Hypokalemia due to diarrhea and Decreased PO intake 4. h/o CHF, compensated 5. accelerated HTN 6. h/o Asthma 7. ? Stroke as per patient 8. itchiness with Cipro use, Plan: pt had a BM yesterday , started on diet, tolerating so far, Passing gas on pt signed out AMA and she came back immediately, today she agreed to stay in hospital and get care BP now controlled with lasix and hydralazine K replaced, today CBC and electrolytes stable no need for IV fluids, will encourage PO intake SCD for DVT prophylaxis Calamine lotion for itchiness pt said her itchiness associated with Cipro, will d/c IV cipro. switch to IV ceftriaxone Subjective 24 Hr Interval Summary Free Text/Dictation pt passed Gas, had a BM yesterday, stable vital signs Exam/Review of Systems Vital Signs Vitals Vital Signs Date Time Temp Pulse Resp B/P Pulse Ox O2 Delivery O2 Flow Rate FiO2 03/05/17 08:41 98.5 72 20 167/78 100 03/04/17 17:00 Room Air Intake and Output 03/04/17 03/04/17 03/05/17 15:00 23:00 07:00 Intake Total 610 ml 880 ml 1710 ml Output Total 1000 ml 200 ml Balance 610 ml -120 ml 1510 ml Exam Constitutional: alert, distress (mild distress due to pain ), other Head: normocephalic ENMT: nl external ears & nose Neck: non-tender, supple Respiratory: clear to auscultation, diminished breath sounds, normal air movement Cardiovascular: nl pulses, regular rate and rhythm Gastrointestinal: soft, tender (diffusely over th abdomen, more on left side ) Musculoskeletal: muscle weakness, nl extremities to inspection, nl gait and stance Neurological: CAN FEEDER II-XII intact, nl mental status, nl speech, nl strength Skin: nl turgor Results Result Diagram: 03/05/17 0444 03/05/17 0444 Results 24 hrs Laboratory Tests Test 03/05/17 04:44 White Blood Count 9.4 Red Blood Count 4.57 Hemoglobin 11.5 L Hematocrit 37.7 Mean Corpuscular Volume 82.5 Mean Corpuscular Hemoglobin 25.2 L Mean Corpuscular Hemoglobin Concent 30.5 L Red Cell Distribution Width 14.7 H Platelet Count 162 Mean Platelet Volume 12.7 H Neutrophils % 73.4 Lymphocytes % 17.2 Monocytes % 7.2 Eosinophils % 1.9 Basophils % 0.1 Nucleated Red Blood Cells % 0.0 Neutrophils # 6.9 Lymphocytes # 1.6 Monocytes # 0.7 Eosinophils # 0.2 Basophils # 0.0 Nucleated Red Blood Cells # 0.0 Prothrombin Time 13.8 Prothrombin Time Ratio 1.1 INR International Normalized Ratio 1.06 Activated Partial Thromboplast Time 33.6 Sodium Level 140 Potassium Level 3.7 Chloride Level 111 H Carbon Dioxide Level 23 Anion Gap 10 Blood Urea Nitrogen 11 Creatinine 0.98 Glucose Level 155 Calcium Level 8.7 Phosphorus Level 3.0 Magnesium Level 1.9 Total Bilirubin 0.4 Direct Bilirubin 0.00 Indirect Bilirubin 0.4 Aspartate Amino Transf (AST/SGOT) 18 Alanine Aminotransferase (ALT/SGPT) 31 Alkaline Phosphatase 97 Total Protein 6.5 Albumin 3.3 Globulin 3.20 Albumin/Globulin Ratio 1.03 Medications Medications Current Medications Ondansetron HCl (Zofran Inj) 4 mg Q6H PRN IV NAUSEA AND/OR VOMITING; Start 03/03/17 at 19:30 Acetaminophen 650 mg 650 mg Q6H PRN [place] PAIN LEVEL 1-3 OR FEVER; Start 03/03/17 at 19:30 Metronidazole 100 ml @ 100 mls/hr Q8 IVPB Last administered on 03/05/17 05:13 ; Admin Dose 100 MLS/HR; Start 03/03/17 at 22:00 Ciprofloxacin/ Dextrose (Cipro Ivpb) 200 ml @ 200 mls/hr Q24H IVPB Last administered on 03/04/17 22:59; Admin Dose 200 MLS/HR; Start 03/03/17 at 23:00 Lactobacillus Acidophilus/ Rhamnosus (Culturelle) 1 cap BID PO Last administered on 03/05/17 09:45; Admin Dose 1 CAP; Start 03/03/17 at 23:00 Aspirin (Halfprin) 81 mg DAILY PO Last administered on 03/05/17 09:47; Admin Dose 81 MG; Start 03/04/17 at 09:00 Salmeterol Xinafoate/ Fluticasone (Advair 250/50 Diskus) 1 inh BID INH Last administered on 03/05/17 09:48; Admin Dose 1 INH; Start 03/04/17 at 09:00 Furosemide (Lasix) 40 mg DAILY PO Last administered on 03/05/17 09:47; Admin Dose 40 MG; Start 03/04/17 at 11:00 Niacin (Niacin) 500 mg BID PO Last administered on 03/05/17 09:47; Admin Dose 500 MG; Start 03/04/17 at 13:00 Potassium Chloride (Klor-Con 20) 20 meq DAILY PO Last administered on 09:47; Admin Dose 20 MEQ; Start 03/04/17 at 11:00 Spironolactone 25 mg 25 mg DAILY@06 PO Last administered on 03/05/17 05:12; Admin Dose 25 MG; Start 03/04/17 at 11:00 Potassium Chloride/Dextrose/ Sod Cl (D5-1/2ns + KCl 10 Meq) 1,000 ml @ 70 mls/ hr [id number] IV Last administered on 03/04/17 12:59; Admin Dose 70 MLS/HR; Start 03/04/17 at 11:00; Stop 03/05/17 at 15:34 Hydralazine HCl (Apresoline) 50 mg Q6H PRN PO SBP>150 mmhg Last administered on 03/04/17 12:21; Admin Dose 50 MG; Start 03/04/17 at 11:00 Hydralazine HCl (Apresoline) 10 mg Q4H PRN IV ELEVATED BLOOD PRESSURE; Start 03/04/17 at 11:00 Famotidine (Pepcid Iv) 20 mg HS IV Last administered on 03/04/17 21:36; Admin Dose 20 MG; Start 03/04/17 at 21:00 Hydromorphone HCl (Dilaudid) 1 mg Q4H PRN IV SEVERE PAIN LEVEL 7-10; Start 03/04/17 at 19:30 Diphenhydramine HCl (Benadryl) 25 mg Q6H PRN PO ITCHING Last administered on 10 /7/17at 11:30; Admin Dose 25 MG; Start 03/04/17 at 23:30 IVAN GARCIA MD Mar 05, 2017 13:39
[2017-03-05] MEDS ORDERED: ACETAMINOPHEN 325 MG TAB ONE ×2 (13:41→13:42)
[2017-03-05] MEDS: CEFTRIAXONE 1 GM/50 ML (PMX) 50 ML IVPB SCH (13:49)
[2017-03-05] MEDS: ACETAMINOPHEN 325 MG TAB PO PRN (13:49)
[2017-03-05] MEDS ORDERED: CALAMINE/PRAMOXINE LOT 180 ML BTL TOP PRN (15:00)
[2017-03-05 20:30] VITALS: BP 158/82; RESP 19
[2017-03-05] MEDS: FAMOTIDINE 20 MG INJ IV SCH (21:38)
[2017-03-06] MEDS: ACETAMINOPHEN 325 MG TAB PO PRN (02:11)
[2017-03-06] MEDS ORDERED: NA PHOSPHATE/BIPHOS 133 ML ENEMA PR PRN (02:20)
[2017-03-06 02:38] VITALS: BP 124/61; RESP 19
[2017-03-06] MEDS: ONDANSETRON 4 MG INJ IV PRN ×2 (04:56→16:42)
[2017-03-06] MEDS: metroNIDAZOLE 500 MG/NS (PMX) 100 ML IVPB SCH ×3 (06:41→21:30)
[2017-03-06] MEDS: SPIRONOLACTONE 25 MG TAB PO SCH (06:41)
[2017-03-06 07:55] VITALS: BP 151/70; RESP 20
[2017-03-06] MEDS: POTASSIUM CHLORIDE (SR) 20 MEQ TAB PO SCH (09:41)
[2017-03-06] MEDS: SALMETEROL/FLUTICASONE 250/50 INHA INH SCH ×2 (09:41→21:03)
[2017-03-06] MEDS: NIACIN 500 MG TAB PO SCH ×2 (09:41→21:03)
[2017-03-06] MEDS: ASPIRIN (EC) 81 MG TAB PO SCH (09:42)
[2017-03-06] MEDS: LACTOBACILLUS RHAMNOSUS CAP PO SCH ×2 (09:42→21:03)
[2017-03-06] MEDS: FUROSEMIDE 40 MG TAB PO SCH (09:42)
--- NOTE | 2017-03-06 10:49 | PN ---
Date/Time of Note Date/Time of Note DATE: 03/06/17 TIME: 10:47 Assessment/Plan VTE Prophylaxis VTE Prophylaxis Intervention: SCD's Lines/Catheters IV Catheter Type (from Nrsg): Peripheral IV Urinary Cath still in place: No Assessment/Plan Assessment/Plan 1. Acute colitis with possible colonic ileus 2. Acute intractable abdominal due to # 1 3. Hypokalemia due to diarrhea and Decreased PO intake 4. h/o CHF, compensated 5. accelerated HTN 6. h/o Asthma 7. ? Stroke as per patient 8. itchiness with Cipro use, stopped, switched to IV Ceftriaxone Plan: Continue IV ceftriaxone and IV flagyl , Pain controlled Miralax for Constiaptin, lactulose prn constipation. on pt signed out AMA and she came back immediately, today she agreed to stay in hospital and get care BP now controlled with lasix and hydralazine no need for IV fluids, will encourage PO intake SCD for DVT prophylaxis Calamine lotion for itchiness Subjective 24 Hr Interval Summary Free Text/Dictation c/o pain in LLQ,BP stable, afebrile Exam/Review of Systems Vital Signs Vitals Vital Signs Date Time Temp Pulse Resp B/P Pulse Ox O2 Delivery O2 Flow Rate FiO2 03/06/17 07:55 98.7 72 20 151/70 98 03/04/17 17:00 Room Air Intake and Output 03/05/17 03/05/17 03/06/17 15:00 23:00 07:00 Intake Total 210 ml 1680 ml 100 ml Balance 210 ml 1680 ml 100 ml Exam Constitutional: alert, distress (mild distress due to pain ), other Respiratory: clear to auscultation, diminished breath sounds, normal air movement Cardiovascular: nl pulses, regular rate and rhythm Gastrointestinal: soft, tender (diffusely over th abdomen, more on left side ) Musculoskeletal: muscle weakness, nl extremities to inspection, nl gait and stance Neurological: CHLORINATION OPERATOR II-XII intact, nl mental status, nl speech, nl strength Results Result Diagram: 03/05/17 0444 03/05/17 0444 Medications Medications Current Medications Ondansetron HCl (Zofran Inj) 4 mg Q6H PRN IV NAUSEA AND/OR VOMITING Last administered on 03/06/17t 04:56; Admin Dose 4 MG; Start 03/03/17 at 19:30 Acetaminophen 650 mg 650 mg Q6H PRN [place] PAIN LEVEL 1-3 OR FEVER; Start 03/03/17 at 19:30 Metronidazole (Flagyl 500 Mg (Pmx)) 100 ml @ 100 mls/hr Q8 IVPB Last administered on 03/06/17 06:41; Admin Dose 100 MLS/HR; Start 03/03/17 at 22:00 Lactobacillus Acidophilus/ Rhamnosus (Culturelle) 1 cap BID PO Last administered on 03/06/17 09:42; Admin Dose 1 CAP; Start 03/03/17 at 23:00 Aspirin (Halfprin) 81 mg DAILY PO Last administered on 03/06/17 09:42; Admin Dose 81 MG; Start 03/04/17 at 09:00 Salmeterol Xinafoate/ Fluticasone (Advair 250/50 Diskus) 1 inh BID INH Last administered on 03/06/17 09:41; Admin Dose 1 INH; Start 03/04/17 at 09:00 Furosemide (Lasix) 40 mg DAILY PO Last administered on 03/06/17 09:42; Admin Dose 40 MG; Start 03/04/17 at 11:00 Niacin (Niacin) 500 mg BID PO Last administered on 03/06/17 09:41; Admin Dose 500 MG; Start 03/04/17 at 13:00 Potassium Chloride (Klor-Con 20) 20 meq DAILY PO Last administered on 09:41; Admin Dose 20 MEQ; Start 03/04/17 at 11:00 Spironolactone (Aldactone) 25 mg DAILY@06 PO Last administered on 03/06/17 06: 41; Admin Dose 25 MG; Start 03/04/17 at 11:00 Hydralazine HCl (Apresoline) 50 mg Q6H PRN PO SBP>150 mmhg Last administered on 03/04/17 12:21; Admin Dose 50 MG; Start 03/04/17 at 11:00 Hydralazine HCl (Apresoline) 10 mg Q4H PRN IV ELEVATED BLOOD PRESSURE; Start 03/04/17 at 11:00 Famotidine (Pepcid Iv) 20 mg HS IV Last administered on 03/05/17 21:38; Admin Dose 20 MG; Start 03/04/17 at 21:00 Hydromorphone HCl (Dilaudid) 1 mg Q4H PRN IV SEVERE PAIN LEVEL 7-10; Start 03/04/17 at 19:30 Diphenhydramine HCl 25 mg 25 mg Q6H PRN PO ITCHING Last administered on 11:30; Admin Dose 25 MG; Start 03/04/17 at 23:30 Ceftriaxone Sodium (Rocephin) 50 ml @ 100 mls/hr Q24H IVPB Last administered on 03/05/17 13:49; Admin Dose 100 MLS/HR; Start 03/05/17 at 13:30 Calamine/Pramoxine (Caladryl Lotion) 1 applic QID PRN TOP itchiness; Start 03/05/17 at 15:00 Acetaminophen (Tylenol Tab) 650 mg Q4H PRN PO PAIN AND OR ELEVATED TEMP Last administered on 03/06/17 02:11; Admin Dose 650 MG; Start 03/05/17 at 13:40 Simethicone (Mylicon) 80 mg TID PRN PO DISTENSION/GAS/BLOATING Last administered on 03/06/17 02:11; Admin Dose 80 MG; Start 03/05/17 at 14:00 Sodium Biphosphate/ Sodium Phosphate (Fleet Enema) 133 ml DAILY PRN [place] CONSTIPATION Last administered on 03/06/17 02:38; Admin Dose 133 ML; Start 03/06/17 at 02:20 IVAN GARCIA MD Mar 06, 2017 10:49 IVAN GARCIA MD Mar 06, 2017 10:49
[2017-03-06] MEDS ORDERED: LACTULOSE 30ML CUP PO PRN (11:30)
[2017-03-06] MEDS ORDERED: POLYETHYLENE GLYCOL 17 GM PACKET PO PRN (11:30)
[2017-03-06 13:53] VITALS: BP 160/74; RESP 20
[2017-03-06] MEDS: CEFTRIAXONE 1 GM/50 ML (PMX) 50 ML IVPB SCH (13:57)
[2017-03-06] MEDS: hydrALAzine 20 MG INJ IV PRN (13:57)
[2017-03-06 19:56] VITALS: BP 142/72; RESP 16
[2017-03-06] MEDS: FAMOTIDINE 20 MG INJ IV SCH (21:03)
[2017-03-06] MEDS ORDERED: NA PHOSPHATE/BIPHOS 133 ML ENEMA PR ONE ×2 (21:30)
[2017-03-06 22:10] VITALS: BP 140/63; PULSE 75; RESP 17
[2017-03-07] MEDS: ONDANSETRON 4 MG INJ IV PRN ×2 (01:50→12:30)
[2017-03-07 02:03] VITALS: BP 124/59; RESP 16
[2017-03-07 05:13] LABS: BASOPHILS % 0.5 % (0.0-2.0); EOSINOPHILS # 0.1 10^3/ul (0.0-0.5); EOSINOPHILS % 1.7 % (0.0-7.0); HEMOGLOBIN 12.2 g/dl (12.0-16.0); LYMPHOCYTES # 1.5 10^3/ul (0.8-2.9); MEAN CORPUSCULAR HEMOGLOBIN 25.5 pg (29.0-33.0); MEAN CORPUSCULAR HGB CONC 31.3 g/dl (32.0-37.0); MEAN CORPUSCULAR VOLUME 81.6 fl (82.0-101.0); MEAN PLATELET VOLUME 12.7 fl (7.4-10.4); MONOCYTE # 0.8 10^3/ul (0.3-0.9); MONOCYTES % 9.8 % (0.0-11.0); NEUTROPHIL # 5.8 10^3/ul (1.6-7.5); NEUTROPHILS % 69.8 % (39.0-77.0); PLATELET COUNT 181 10^3/UL (140-415); RED BLOOD COUNT 4.78 10^6/ul (4.20-5.40); WHITE BLOOD COUNT 8.3 10^3/ul (4.8-10.8)
[2017-03-07 05:17] LABS: ALBUMIN 3.3 g/dl (3.3-4.9); ALBUMIN/GLOBULIN RATIO 0.89; BILIRUBIN,INDIRECT 0.2 mg/dl (0-1.1); BILIRUBIN,TOTAL 0.2 mg/dl (0.2-1.3); CREATININE 0.97 mg/dl (0.44-1.00); POTASSIUM 3.3 mmol/L (3.5-5.1)
[2017-03-07 05:20] LABS: MAGNESIUM 1.6 mg/dl (1.7-2.5); PHOSPHORUS 3.7 mg/dl (2.5-4.9)
[2017-03-07] MEDS: metroNIDAZOLE 500 MG/NS (PMX) 100 ML IVPB SCH (05:29)
[2017-03-07] MEDS: SPIRONOLACTONE 25 MG TAB PO SCH (05:29)
[2017-03-07 05:58] LABS: INR 1.2; PROTIME 15.3 Sec (12.2-14.2); PT RATIO 1.2
[2017-03-07 05:59] LABS: PARTIAL THROMBOPLASTIN TIME 38.8 Sec (25.0-35.0)
[2017-03-07 08:23] VITALS: BP 131/66; RESP 18
[2017-03-07] MEDS ORDERED: POTASSIUM CHLORIDE 250 ML IVPB ONE (09:00)
[2017-03-07] MEDS: FUROSEMIDE 40 MG TAB PO SCH (09:11)
[2017-03-07] MEDS: LACTOBACILLUS RHAMNOSUS CAP PO SCH ×2 (09:12→21:19)
[2017-03-07] MEDS: POTASSIUM CHLORIDE (SR) 20 MEQ TAB PO SCH (09:12)
[2017-03-07] MEDS: SALMETEROL/FLUTICASONE 250/50 INHA INH SCH ×2 (09:13→21:20)
[2017-03-07] MEDS: NIACIN 500 MG TAB PO SCH ×2 (09:13→21:26)
[2017-03-07] MEDS: ASPIRIN (EC) 81 MG TAB PO SCH (09:13)
[2017-03-07] MEDS ORDERED: MAGNESIUM SULFATE 3 GM in SOD CHLORIDE 0.9% 100 ML IVPB ONE (10:00)
--- NOTE | 2017-03-07 15:24 | PN ---
Date/Time of Note Date/Time of Note DATE: 03/07/17 TIME: 15:20 Assessment/Plan VTE Prophylaxis VTE Prophylaxis Intervention: SCD's Lines/Catheters IV C[facility]ter Type (from [facility]): Peripheral IV Urinary Cath still in place: No Assessment/Plan Chief Complaint/Hosp Course 1. Colonic ileus-improving Now having bowel movements Replete magnesium and potassium 2. Diarrhea-resolved Patient likely having IBS secondary to emotional stress Hypokalemia/mag due to diarrhea and Decreased PO intake 3. h/o CHF-compensated 4. Hypertension-stable 5. 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 Prophylaxis: SCDs Discharge planning: DC tomorrow Problems: Subjective 24 Hr Interval Summary Gastrointestinal: passing stool Exam/Review of Systems Vital Signs Vitals Vital Signs Date Time Temp Pulse Resp B/P Pulse Ox O2 Delivery O2 Flow Rate FiO2 03/07/17 08:23 98.7 88 18 131/66 99 03/06/17 22:10 Room Air Intake and Output 03/06/17 03/06/17 03/07/17 15:00 23:00 07:00 Intake Total 1210 ml 580 ml Balance 1210 ml 580 ml Exam Constitutional: alert, oriented Respiratory: clear to auscultation Cardiovascular: regular rate and rhythm Gastrointestinal: soft, No distended Musculoskeletal: nl extremities to inspection Results Result Diagram: 03/07/17 0419 03/07/17 0419 Results 24 hrs Laboratory Tests Test 03/07/17 04:19 White Blood Count 8.3 Red Blood Count 4.78 Hemoglobin 12.2 Hematocrit 39.0 Mean Corpuscular Volume 81.6 L Mean Corpuscular Hemoglobin 25.5 L Mean Corpuscular Hemoglobin Concent 31.3 L Red Cell Distribution Width 15.0 H Platelet Count 181 Mean Platelet Volume 12.7 H Neutrophils % 69.8 Lymphocytes % 18.0 Monocytes % 9.8 Eosinophils % 1.7 Basophils % 0.5 Nucleated Red Blood Cells % 0.0 Neutrophils # 5.8 Lymphocytes # 1.5 Monocytes # 0.8 Eosinophils # 0.1 Basophils # 0.0 Nucleated Red Blood Cells # 0.0 Prothrombin Time 15.3 H Prothrombin Time Ratio 1.2 INR International Normalized Ratio 1.20 Activated Partial Thromboplast Time 38.8 H Sodium Level 139 Potassium Level 3.3 L Chloride Level 110 Carbon Dioxide Level 22 Anion Gap 10 Blood Urea Nitrogen 9 Creatinine 0.97 Glucose Level 126 Calcium Level 9.0 Phosphorus Level 3.7 Magnesium Level 1.6 L Total Bilirubin 0.2 Direct Bilirubin 0.00 Indirect Bilirubin 0.2 Aspartate Amino Transf (AST/SGOT) 39 Alanine Aminotransferase (ALT/SGPT) 40 Alkaline Phosphatase 108 Total Protein 7.0 Albumin 3.3 Globulin 3.70 H Albumin/Globulin Ratio 0.89 Medications Medications Current Medications Ondansetron HCl (Zofran Inj) 4 mg Q6H PRN IV NAUSEA AND/OR VOMITING Last administered on 03/07/17 12:30; Admin Dose 4 MG; Start 03/03/17 at 19:30 Acetaminophen 650 mg 650 mg Q6H PRN [place] PAIN LEVEL 1-3 OR FEVER; Start 03/03/17 at 19:30 Metronidazole (Flagyl 500 Mg (Pmx)) 100 ml @ 100 mls/hr Q8 IVPB Last administered on 03/07/17 05:29; Admin Dose 100 MLS/HR; Start 03/03/17 at 22:00 Lactobacillus Acidophilus/ Rhamnosus (Culturelle) 1 cap BID PO Last administered on 03/07/17 09:12; Admin Dose 1 CAP; Start 03/03/17 at 23:00 Aspirin (Halfprin) 81 mg DAILY PO Last administered on 03/07/17 09:13; Admin Dose 81 MG; Start 03/04/17 at 09:00 Salmeterol Xinafoate/ Fluticasone (Advair 250/50 Diskus) 1 inh BID INH Last administered on 03/07/17 09:13; Admin Dose 1 INH; Start 03/04/17 at 09:00 Furosemide (Lasix) 40 mg DAILY PO Last administered on 03/07/17 09:11; Admin Dose 40 MG; Start 03/04/17 at 11:00 Niacin (Niacin) 500 mg BID PO Last administered on 03/07/17 09:13; Admin Dose 500 MG; Start 03/04/17 at 13:00 Potassium Chloride (Klor-Con 20) 20 meq DAILY PO Last administered on 09:12; Admin Dose 20 MEQ; Start 03/04/17 at 11:00 Spironolactone (Aldactone) 25 mg DAILY@06 PO Last administered on 03/07/17 05: 29; Admin Dose 25 MG; Start 03/04/17 at 11:00 Hydralazine HCl (Apresoline) 50 mg Q6H PRN PO SBP>150 mmhg Last administered on 03/04/17 12:21; Admin Dose 50 MG; Start 03/04/17 at 11:00 Hydralazine HCl (Apresoline) 10 mg Q4H PRN IV ELEVATED BLOOD PRESSURE Last administered on 03/06/17 13:57; Admin Dose 10 MG; Start 03/04/17 at 11:00 Famotidine (Pepcid Iv) 20 mg HS IV Last administered on 03/06/17 21:03; Admin Dose 20 MG; Start 03/04/17 at 21:00 Hydromorphone HCl (Dilaudid) 1 mg Q4H PRN IV SEVERE PAIN LEVEL 7-10; Start 03/04/17 at 19:30 Diphenhydramine HCl 25 mg 25 mg Q6H PRN PO ITCHING Last administered on 11:30; Admin Dose 25 MG; Start 03/04/17 at 23:30 Ceftriaxone Sodium (Rocephin) 50 ml @ 100 mls/hr Q24H IVPB Last administered on 03/06/17 13:57; Admin Dose 100 MLS/HR; Start 03/05/17 at 13:30 Calamine/Pramoxine (Caladryl Lotion) 1 applic QID PRN TOP itchiness; Start 03/05/17 at 15:00 Acetaminophen (Tylenol Tab) 650 mg Q4H PRN PO PAIN AND OR ELEVATED TEMP Last administered on 03/06/17 02:11; Admin Dose 650 MG; Start 03/05/17 at 13:40 Simethicone (Mylicon) 80 mg TID PRN PO DISTENSION/GAS/BLOATING Last administered on 03/06/17 16:46; Admin Dose 80 MG; Start 03/05/17 at 14:00 Sodium Biphosphate/ Sodium Phosphate (Fleet Enema) 133 ml DAILY PRN [place] CONSTIPATION Last administered on 03/06/17 02:38; Admin Dose 133 ML; Start 03/06/17 at 02:20 Polyethylene Glycol (Miralax) 17 gm DAILY PRN PO CONSTIPATION Last administered on 03/06/17 16:47; Admin Dose 17 GM; Start 03/06/17 at 11:30 Lactulose (Enulose) 20 gm Q6H PRN PO CONSTIPATION Last administered on t 19:37; Admin Dose 20 GM; Start 03/06/17 at 11:30 KELIN JACK Mar 07, 2017 15:24
[2017-03-07 19:41] VITALS: BP 166/74; RESP 18
[2017-03-07] MEDS: FAMOTIDINE 20 MG INJ IV SCH (21:19)
[2017-03-07 21:30] VITALS: BP 173/77; PULSE 75
[2017-03-07] MEDS: hydrALAzine 20 MG INJ IV PRN (21:38)
[2017-03-07 21:45] VITALS: BP 138/73; PULSE 75
[2017-03-08 05:20] LABS: BASOPHILS % 0.4 % (0.0-2.0); EOSINOPHILS # 0.2 10^3/ul (0.0-0.5); EOSINOPHILS % 1.8 % (0.0-7.0); HEMATOCRIT 39.2 % (37.0-47.0); HEMOGLOBIN 12.1 g/dl (12.0-16.0); LYMPHOCYTES # 2.2 10^3/ul (0.8-2.9); LYMPHOCYTES % 21.7 % (15.0-51.0); MEAN CORPUSCULAR HEMOGLOBIN 25.4 pg (29.0-33.0); MEAN CORPUSCULAR HGB CONC 30.9 g/dl (32.0-37.0); MEAN CORPUSCULAR VOLUME 82.2 fl (82.0-101.0); MEAN PLATELET VOLUME 12.4 fl (7.4-10.4); MONOCYTES % 10.5 % (0.0-11.0); NEUTROPHIL # 6.5 10^3/ul (1.6-7.5); NEUTROPHILS % 65.3 % (39.0-77.0); PLATELET COUNT 188 10^3/UL (140-415); RED BLOOD COUNT 4.77 10^6/ul (4.20-5.40); RED CELL DISTRIBUTION WIDTH 15.1 % (11.5-14.5); WHITE BLOOD COUNT 9.9 10^3/ul (4.8-10.8)
[2017-03-08 05:46] LABS: CALCIUM 9.1 mg/dl (8.4-10.2); CREATININE 0.99 mg/dl (0.44-1.00); MAGNESIUM 2.2 mg/dl (1.7-2.5); POTASSIUM 3.4 mmol/L (3.5-5.1)
[2017-03-08] MEDS: SPIRONOLACTONE 25 MG TAB PO SCH (05:58)
[2017-03-08 08:40] VITALS: BP 148/65; RESP 18
[2017-03-08] MEDS: SALMETEROL/FLUTICASONE 250/50 INHA INH SCH (09:00)
[2017-03-08] MEDS: ASPIRIN (EC) 81 MG TAB PO SCH (09:21)
[2017-03-08] MEDS: LACTOBACILLUS RHAMNOSUS CAP PO SCH (09:21)
[2017-03-08] MEDS: POTASSIUM CHLORIDE (SR) 20 MEQ TAB PO SCH (09:21)
[2017-03-08] MEDS: NIACIN 500 MG TAB PO SCH (09:22)
[2017-03-08] MEDS: FUROSEMIDE 40 MG TAB PO SCH (09:22)
--- NOTE | 2017-03-08 09:56 | PDOCDIS ---
Discharge Instructions CONDITION Patient Condition: Good HOME CARE INSTRUCTIONS: Special Diet: BRAT DIET ACTIVITY: Activity Restrictions: No Restrictions FOLLOW UP/APPOINTMENTS Follow-up Plan F/U WITH YOUR PCP IN 1-2 WEEKS KELIN JACK Mar 08, 2017 09:56
[2017-03-08] MEDS ORDERED: POTASSIUM CHLORIDE (SR) 20 MEQ TAB PO SCH (10:00)
--- NOTE | 2017-03-08 15:11 | DS ---
Date/Time of Note Date/Time of Note DATE: 03/08/17 TIME: 15:08 Discharge Summary Admission/Discharge Info Admit Date/Time Mar 03, 2017 at 18:23 Discharge Date/Time Mar 08, 2017 at 11:45 Discharge Diagnosis 1. Colonic ileus-resolved Repleted magnesium and potassium 2. Diarrhea-resolved Patient likely having IBS secondary to emotional stress Hypokalemia/mag due to diarrhea and Decreased PO intake 3. h/o CHF-compensated 4. Hypertension-stable 5. 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 Patient had diarrhea prior to her ileus, her electrolytes were deficient and replaced. Patient did begin to have bowel movements that were regular. Of note patient had no evidence of sepsis and antibiotics were discontinued. Patient was undergoing emotional stress secondary to her living conditions, patient was seen by a social work nurse. Patient was felt to be stable for DC and on day of discharge patient's vitals, labs and physical exam are stable, had no further acute complaints and questions are answered. Home Meds Reported Medications Lisinopril* (Lisinopril*) Unknown Strength Tablet, PO DAILY, #30 TAB 03/03/17 Aspirin* (Aspirin* EC) 81 Mg Tablet.dr, 81 MG PO DAILY, TAB 01/21/17 Budesonide-Formoterol Fumarate* (Symbicort*) 160-4.5 Hfa.aer.ad, 2 PUFF INHALATION BID, #1 EACH 01/21/17 Niacin* (Niacin*) 500 Mg Tablet, 500 MG PO BID, TAB 12/10/15 Potassium Chloride* (Potassium Chloride*) 20 Meq Tablet.er, 20 MEQ PO DAILY, TAB.SA 04/13/14 Spironolactone* (Aldactone*) 25 Mg Tablet, 25 MG PO DAILY, TAB 04/13/14 Furosemide* (Furosemide*) 40 Mg Tablet, 40 MG PO DAILY, TAB 12/25/13 Discontinued Reported Medications Carvedilol* (Carvedilol*) 6.25 Mg Tablet, 6.25 MG PO BID, #60 TAB 12/10/15 Digoxin* (Digoxin*) 0.125 Mg Tab, 0.125 MG PO DAILY, #30 TAB 12/10/15 Follow-up Plan F/U WITH YOUR PCP IN 1-2 WEEKS Primary Care Provider Bjorn Anderson MD Time spent on discharge: > 30 minutes KELIN JACK Mar 08, 2017 15:11
== END 2017-03-08 11:45 | disposition home or self-care (01) | DRG 392 ==
LOC: E/R 16:18 → MS2 18:23 → UNDOADMIN 18:53 → MS2 18:53 → MS1 23:45
PROVIDERS: ADMIT Internal Medicine; ATTEND Internal Medicine
DX: K58.0 Irritable bowel syndrome with diarrhea (principal); K56.7 Ileus, unspecified; I11.0 Hypertensive heart disease with heart failure; I50.9 Heart failure, unspecified; E11.9 Type 2 diabetes mellitus without complications; D64.9 Anemia, unspecified; E78.5 Hyperlipidemia, unspecified; E87.6 Hypokalemia; Z86.73 Personal history of transient ischemic attack (TIA), and cerebral infarction without residual deficits; F41.9 Anxiety disorder, unspecified; F54 Psychological and behavioral factors associated with disorders or diseases classified elsewhere; E78.00 Pure hypercholesterolemia, unspecified; Z59.1 Inadequate housing
CPT/HCPCS: 36415; 74176; 80048; 80053; 81003; 82270; 83690; 83735; 84100; 84484; 85025; 85610; 85730; 93005; 96374; 96375; J0360; J0696; J0744; J1170; J2405; J3475; J3480; J7030; J7040

== ENCOUNTER 2017-06-15 13:47 | Emergency (ER) | END 2017-06-15 23:33 | disposition left against medical advice (07) ==

== ENCOUNTER → 2017-06-15 | Outpatient (CLI) | END | disposition home or self-care (01) ==

== ENCOUNTER 2017-06-17 12:55 | Emergency (ER) | END 2017-06-17 20:04 | disposition home or self-care (01) ==

== ENCOUNTER 2018-05-27 16:35 | Emergency (ER) | END 2018-05-27 20:04 | disposition left against medical advice (07) ==